=== PATIENT | male | born 1935 | race Caucasian/White ===

== ENCOUNTER 2018-03-16 13:27 | Emergency (ER) | payer OTHER ==
[~2018-03-16] VITALS: Ht 182.9 cm; Wt 126.1 kg
[~2018-03-16 13:27] MED LIST: AMOX1TAB12 PO; LABETALOL HCL200 MG PO; LIPITOR20 MG PO; NORVASC2.5 MG PO; NOVOLOG100 U/M1 SQ
== END 2018-03-16 20:55 | disposition home or self-care (01) ==
LOC: ER 13:27
DX: M79.89 Other specified soft tissue disorders (principal); E11.9 Type 2 diabetes mellitus without complications

== ENCOUNTER 2018-03-17 17:08 | Inpatient (IN) | payer OTHER ==
[~2018-03-17] VITALS: Ht 182.9 cm; Wt 125.6 kg
--- NOTE | 2018-03-17 17:23 | NUR ---
SE RECIBE PACIENTE ALERTA Y ORIENTADO X3 QUE REFIERE TENER CHF DIAGNOSTICADO POR DR. NIRMAL SALMON. SE UBICA PACIENTE EN CAMA.
--- NOTE | 2018-03-17 17:25 | NUR ---
SE RECIBE PTE ALERTA Y ORIENTADO EN LAS 3 ESFERAS DEL AREA DE TRIAGE. SE UBICA A PTE EN CAMA CON BARANDAS ELEVADAS POR SEGURIDAD, SE CONECTA A MONITOR CARDIACO, Y OXIMETRIA DE PULSO. SE ORIENTA A PTE SOBRE PROTOCOLO DE LA UNIDAD DE DOLOR DE PECHO. EVALUA PTE. SE EXTRAEN MUESTRAS DE LABORATORIO BAJO MEDIDAS ASEPTICAS. SE ADMINISTRA MEDICAMENTO RYLAN ORDEN MEDICA. SE INSERTA SONDA URINARIA BAJO MEDIDAS ESTERILES, PTE PRESENTA EGRESO URINARIO DE 400ML DE ORINA COLOR AMARILLO. SE NOTIFICA ABG. SE COLOCA A PTE CANULA NASAL A 2LTS. SE MANTIENE EN OBSERVACION POR CAMBIOS.
--- NOTE | 2018-03-17 22:30 | NUR ---
PTE PRESENTA EGRESO URINARIO DE 1300ML DE ORINA COLOR AMARILLO ASIA.
[2018-03-25] MEDS ORDERED: OSEL75CA PO (12:10)
[2018-03-25] MEDS ORDERED: CARVEDILOL6.25 MG PO ×2 (12:11→12:40)
[2018-03-25] MEDS ORDERED: IPRAT-ALBUT 0.5-3 ML IH (12:13)
[2018-03-25] MEDS ORDERED: PREDNISONE10 MG PO (12:37)
[2018-03-25] MEDS ORDERED: HumaLOG 100 UNIT/1 M SUBCUTANEO (12:40)
[2018-03-25] MEDS ORDERED: GUAIFENESI100 MG/52 PO (12:40)
[2018-03-25] MEDS ORDERED: Lantus 1000 UNITS/10 SUBCUTANEO (12:40)
[2018-03-25] MEDS ORDERED: IPRATROPIU0.2 MG/1 M IH (12:40)
[2018-03-25] MEDS ORDERED: Coreg 6.25MG TABLET PO (12:40)
[2018-03-25] MEDS ORDERED: HYDRALAZINE HCL25 MG PO (12:40)
[2018-03-25] MEDS ORDERED: ADULT ASPIRIN81 MG PO (12:40)
[2018-03-25] MEDS ORDERED: VOLTAREN100 GM TOP (12:40)
== END 2018-03-25 16:12 | disposition home or self-care (01) | DRG 291 ==
LOC: ER 17:08 → ICU-2 22:48 → MEDJ 22:48
PROVIDERS: ADMIT Internal Medicine Cardiovascular Disease
PROC: 4A033R1 Measurement of Arterial Saturation, Peripheral, Percutaneous Approach (ICD-10-PCS; principal; 2018-03-17)
PROC: 3E0F7GC Introduction of Other Therapeutic Substance into Respiratory Tract, Via Natural or Artificial Opening (ICD-10-PCS; 2018-03-17)
PROC: BT43ZZZ Ultrasonography of Bilateral Kidneys (ICD-10-PCS; 2018-03-17)
PROC: B246ZZZ Ultrasonography of Right and Left Heart (ICD-10-PCS; 2018-03-18)
PROC: 0BH17EZ Insertion of Endotracheal Airway into Trachea, Via Natural or Artificial Opening (ICD-10-PCS; 2018-03-18)
PROC: 5A1945Z Respiratory Ventilation, 24-96 Consecutive Hours (ICD-10-PCS; 2018-03-18)
DX: I13.0 Hypertensive heart and chronic kidney disease with heart failure and stage 1 through stage 4 chronic kidney disease, or unspecified chronic kidney disease (principal); I50.33 Acute on chronic diastolic (congestive) heart failure; J44.1 Chronic obstructive pulmonary disease with (acute) exacerbation; J10.1 Influenza due to other identified influenza virus with other respiratory manifestations; N18.1 Chronic kidney disease, stage 1; E11.22 Type 2 diabetes mellitus with diabetic chronic kidney disease; E11.65 Type 2 diabetes mellitus with hyperglycemia; Z79.4 Long term (current) use of insulin; G47.33 Obstructive sleep apnea (adult) (pediatric); E66.01 Morbid (severe) obesity due to excess calories; R60.0 Localized edema